=== PATIENT | female | born 1980 | race Caucasian/White ===

== ENCOUNTER 2022-01-02 16:55 | Observation (INO) | payer OTHER ==
[~2022-01-02] VITALS: Ht 152.4 cm; Wt 56.3 kg
[2022-01-02 19:28] LABS: COLLECTION METHOD CLEAN CATCH
[2022-01-02 19:33] LABS: BASO # 0.1 K/mm3 (0.0-0.2); BASO % 0.4 % (0.0-2.0); EOS # 0.1 K/mm3 (0.0-0.7); EOS % 0.6 % (0.0-4.0); GRAN % 72.2 % (42.2-75.2); HEMATOCRIT 37.7 % (37.0-47.0); HEMOGLOBIN 12.5 g/dl (12.5-16.0); LYMPH % 17.5 % (20.0-51.0); MEAN CELL VOLUME 77 fl (80.0-100.0); MEAN CORPUSCULAR HEMOGLOBIN 26 pg (27-31); MEAN CORPUSCULAR HGB CONC 33 g/dl (33.0-37.0); MEAN PLATELET VOLUME 12.8 fl (7.4-10.4); MONO % 8.9 % (1.7-9.3); PLATELET COUNT 179 K/mm3 (130-400); REDCELL DISTRIBUTION WIDTH-CV 14.2 % (11.5-14.5)
[2022-01-02 19:36] LABS: MUCOUS Present (NOT PRESENT); PH 6 (5-8); URINE APPEARANCE Hazy (CLEAR/HAZY); URINE BACTERIA Rare /hpf (NONE SEEN); URINE BILIRUBIN Negative (NEGATIVE); URINE BLOOD 2+ (NEGATIVE); URINE COLOR Yellow (YELLOW); URINE GLUCOSE Negative (NEGATIVE); URINE KETONE Trace (NEGATIVE); URINE LEUKOCYTE ESTERASE Trace (NEGATIVE); URINE NITRATE Negative (NEGATIVE); URINE PROTEIN(semi-quant) Negative (NEGATIVE); URINE RBC 0-2 /hpf (0-2); URINE UROBILINOGEN Negative (NEGATIVE)
[2022-01-02 19:59] LABS: ALBUMIN 3.6 gm/dL (3.5-5.0); BILIRUBIN,TOTAL 0.6 mg/dL (0.2-1.2); C-REACTIVE PROTEIN 7.52 mg/dL (0.00-0.50); CALCIUM 8.6 mg/dL (8.4-10.2); CREATININE, serum 0.7 mg/dL (0.57-1.11); POTASSIUM 3.6 mmol/L (3.5-4.5); TOTAL PROTEIN 6.9 gm/dL (6.2-8.1)
[2022-01-02] MEDS ORDERED: JUNEL 1/20 20 M1 TAB (22:47)
[2022-01-02 23:29] VITALS: BP 111/67; PULSE 53; TEMP 98.7
[2022-01-03] VITALS (11 sets, daily range): BP systolic 103–120; BP diastolic 69–83; PULSE 57–76; TEMP 72–99.1
--- NOTE | 2022-01-03 01:06 | NUR ---
PATIENT UP TO ROOM 329 VIA WHEELCHAIR. AMBULATED INDEPENDENTLY TO BED. ALERT AND ORIENTED. C/O MILD ABD PAIN, DENIES PAIN CONTROL NEEDS AT THIS TIME. CALL PLACED TO TO VERIFY DIET ORDER. STATED PATIENT CAN HAVE CLEARS TILL MIDNIGHT. PATIENT TOLERATED BROTH AND APPLE JUICE AND IS NOW NPO. MED RX AND ADMISSION ASSESSMENTS COMPLETED. EDUCATION DONE REGARDING POSSIBLE NEED FOR SURGERY TOMORROW. PATIENT UNDERSTANDING. CURRENTLY IN BED, ON PHONE. DENIES NEEDS. CALL LIGHT IN REACH.
--- NOTE | 2022-01-03 08:00 | NUR ---
Pt doing okay this morning. Dr Donahue has been in to see pt, order wrote for surgery. Consent signed and pt down for surgery at this time
[2022-01-03] MEDS ORDERED: NORCO 325 MG-51 TAB PO (09:01)
--- NOTE | 2022-01-03 10:09 | NUR ---
Pt arrived back from surgery. She is alert and oriented, a little drowsy. No pain complaints at this time. Bandaids x3 are CDI. Educated pt on diet and how to order. Pt reported that she is not hungry at this time when I offered applesauce and jello. Gave her some ice water. Pt does have a dry cough which she stated is common for her. Pt has a friend present with her at this time.
--- NOTE | 2022-01-03 13:10 | NUR ---
Pt doing well, but is having complaints of being dizzy. She is not steady on her feet due to this. Educated her on discharge, but stated that she needed to be safe before going home. Pt has eaten regular food and has no complaints of nausea.
--- NOTE | 2022-01-03 16:14 | NUR ---
Pt doing much better at this time, minimal to no complaints of feeling dizzy. Pt is ready for discharge. Reviewed discharge instructions with her to include follow up appointment and prescriptions. Pt stated her ride would be here in about 15-20 minutes. Informed her to notify nursing when her ride arrives
--- NOTE | 2022-01-03 17:51 | NUR ---
Pt escorted out at this time
== END 2022-01-03 17:51 | disposition home or self-care (01) ==
LOC: COL.ER 16:55 → SURG 22:10
PROVIDERS: Physician Assistant; ADMIT Surgery
DX: K35.80 Unspecified acute appendicitis (principal)
CPT/HCPCS: G0378; J1100; J1885; J2250; J2405; J2543; J2704; J3010; J7030; Q9967

== ENCOUNTER → 2022-04-14 | Outpatient (CLI) | payer OTHER ==
[~2022-04-14] MED LIST: JUNEL 1/20 20 M1 TAB; NORCO 325 MG-51 TAB PO
== END ==
LOC: MC.RAD 03-22 10:45
DX: Z12.31 Encounter for screening mammogram for malignant neoplasm of breast (principal); N64.89 Other specified disorders of breast

== ENCOUNTER → 2022-04-18 | Outpatient (CLI) | payer OTHER | LOC: MC.RAD 12:50 | DX: R92.0 Mammographic microcalcification found on diagnostic imaging of breast (principal) ==